=== PATIENT | male | born 1990 | race Caucasian/White ===

== ENCOUNTER 2016-06-19 23:00 | Emergency (ER) | payer OTHER ==
[~2016-06-19] VITALS: Ht 180.3 cm; Wt 129.0 kg
[~2016-06-19 23:00] MED LIST: ATHENOL325 MG PO
[2016-06-20 01:19] VITALS: BP 151/96
== END 2016-06-20 01:45 | disposition home or self-care (01) ==
LOC: EME 23:00
PROC: 0HQGXZZ Repair Left Hand Skin, External Approach (ICD-10-PCS; principal; 2016-06-20)
PROC: 3E0234Z Introduction of Serum, Toxoid and Vaccine into Muscle, Percutaneous Approach (ICD-10-PCS; 2016-06-20)
DX: S61.412A Laceration without foreign body of left hand, initial encounter (principal); W27.8XXA Contact with other nonpowered hand tool, initial encounter; Y99.0 Civilian activity done for income or pay; Z23 Encounter for immunization; Z87.891 Personal history of nicotine dependence

== ENCOUNTER 2017-03-30 15:15 | Emergency (ER) | payer SELFPAY ==
[~2017-03-30] VITALS: Ht 180.3 cm; Wt 113.8 kg
[2017-03-30 15:55] LABS: HEMATOCRIT 44.2 % (38.0-50.0); MCH 27.2 PG (29.0-34.0); MCHC 32.4 G/DL (30.0-36.0); MEAN PLAT.VOLUME 10.9 uM^3 (9.0-12.4); PLATELET COUNT 274 K/uL (156-360); RBC DIS.WIDTH-CV 13.8 % (11.8-14.6); RBC DIS.WIDTH-SD 42.5 % (39-53); RED BLOOD COUNT 5.26 M/uL (4.00-5.50); WHITE BLOOD COUNT 13.7 K/uL (4.1-10.2)
[2017-03-30 16:06] LABS: ADD MIUA? YES; BILIRUBIN SMALL; BLOOD NEGATIVE; COLOR AMBER ((YELLOW)); GLUCOSE (STRIP) NEGATIVE; KETONES 20; LEUKOCYTES NEGATIVE; NITRITE NEGATIVE; PROTEIN (STRIP) 100; SPECIFIC GRAVITY 1.039 (1.000-1.030)
[2017-03-30 16:09] LABS: CHLORIDE 104 mEq/L (99-109); POTASSIUM 3.4 mEq/L (3.7-5.4); SODIUM 140 mEq/L (136-147)
[2017-03-30 16:12] LABS: GLUCOSE 136 mg/dL (70-99)
[2017-03-30 16:13] LABS: ANION GAP 12 MEQ/L (2-14)
[2017-03-30 16:14] LABS: TOTAL BILIRUBIN 0.6 mg/dL (0.0-1.0)
[2017-03-30 16:15] LABS: ALKALINE PHOSPHATASE 87 IU/L (3-129); GFR ESTIMATE (CALCULATED) > 59 mL/min/ (58.99-99999)
[2017-03-30 16:16] LABS: UREA NITROGEN (BUN) 19 mg/dL (9-23)
[2017-03-30 16:42] LABS: BACTERIA NONE SEEN /HPF; EPITHELIAL CELLS NONE SEEN /HPF; MUCUS 4+ /LPF; RED BLOOD CELLS 0-5 /HPF (0-5); UCUL ADDED? NO; WHITE BLOOD CELLS 0-5 /HPF (0-5)
[2017-03-30] MEDS ORDERED: XYLOCAINE VISC100 ML PO (17:48)
[2017-03-30] MEDS ORDERED: ZOFRAN ODT4 MG PO (17:51)
[2017-03-30 18:06] VITALS: BP 134/85
== END 2017-03-30 18:05 | disposition home or self-care (01) ==
LOC: RME 15:15 → EME 15:15 → RME 18:05
PROVIDERS: Physician Assistant Medical
DX: J02.9 Acute pharyngitis, unspecified (principal); R11.2 Nausea with vomiting, unspecified; R19.7 Diarrhea, unspecified; R05 Cough; Z87.891 Personal history of nicotine dependence
CPT/HCPCS: 80053; 81003; 85027; 87502; 87651 90; 99281; 99284; J0561

== ENCOUNTER 2017-04-01 03:26 | Emergency (ER) | payer SELFPAY ==
[~2017-04-01] VITALS: Ht 180.3 cm; Wt 111.9 kg
[~2017-04-01 03:26] MED LIST changes: +XYLOCAINE VISC100 ML PO; +ZOFRAN ODT4 MG PO
[2017-04-01 04:27] LABS: EOSINOPHIL (%) 0.3 % (0-5); HEMATOCRIT 46.4 % (38.0-50.0); IMMATURE GRANULOCYTE (%) 0.3 % (0.0-0.7); INSTRUMENT ABS NEUTROPHIL CT 6.8 K/uL; LYMPHOCYTE COUNT 3.3 K/uL (1.0-2.8); MCH 26.5 PG (29.0-34.0); MCHC 31.9 G/DL (30.0-36.0); MCV 83.2 FL (86-99); MEAN PLAT.VOLUME 10.5 uM^3 (9.0-12.4); MONOCYTE (%) 9.7 % (3-12); MONOCYTE COUNT 1.1 K/uL (0-0.8); NEUTROPHIL COUNT 6.8 K/uL (1.8-6.4); PLATELET COUNT 293 K/uL (156-360); RBC DIS.WIDTH-CV 14.1 % (11.8-14.6); RBC DIS.WIDTH-SD 42.5 % (39-53); RED BLOOD COUNT 5.58 M/uL (4.00-5.50); WHITE BLOOD COUNT 11.3 K/uL (4.1-10.2)
[2017-04-01 04:35] LABS: CHLORIDE 102 mEq/L (99-109); POTASSIUM 3.6 mEq/L (3.7-5.4); SODIUM 141 mEq/L (136-147)
[2017-04-01 04:37] LABS: GLUCOSE 128 mg/dL (70-99)
[2017-04-01 04:38] LABS: ANION GAP 16 MEQ/L (2-14)
[2017-04-01 04:39] LABS: TOTAL BILIRUBIN 0.6 mg/dL (0.0-1.0)
[2017-04-01 04:40] LABS: ALKALINE PHOSPHATASE 83 IU/L (3-129)
[2017-04-01 04:41] LABS: GFR ESTIMATE (CALCULATED) > 59 mL/min/ (58.99-99999)
[2017-04-01 04:42] LABS: UREA NITROGEN (BUN) 23 mg/dL (9-23)
[2017-04-01 06:07] LABS: CREATINE KINASE 191 IU/L (1-294)
[2017-04-01 06:11] LABS: TROP-I INTERPRETATION NEGATIVE; TROPONIN-I < 0.01 ng/mL (0.0-0.30)
[2017-04-01 07:13] LABS: INTERNAL CONTROL VALID? YES; MONOSPOT (MONONUCLEOSIS SEROL) NEGATIVE
[2017-04-01] MEDS ORDERED: TESSALON PERLE100 MG PO (07:43)
[2017-04-01] MEDS ORDERED: PEN-VEE K,VEET500 MG PO (07:43)
[2017-04-01] MEDS ORDERED: PHENERGAN DM SYR1 ML PO (07:43)
[2017-04-01 08:19] VITALS: BP 125/76
== END 2017-04-01 08:22 | disposition home or self-care (01) ==
LOC: EME 03:26
PROVIDERS: Physician Assistant
DX: J03.00 Acute streptococcal tonsillitis, unspecified (principal); B27.90 Infectious mononucleosis, unspecified without complication; R00.0 Tachycardia, unspecified; Z87.891 Personal history of nicotine dependence
CPT/HCPCS: 71020; 71275; 80053; 82550; 83605; 83880; 84484; 85025; 85379; 86308; 87040; 93005; 94640; 99281; 99285; J1100; J1885; J7030